=== PATIENT | male | born 1970 | race Caucasian/White ===

== ENCOUNTER 2024-02-19 16:17 | Emergency (ER) | payer OTHER ==
[~2024-02-19] VITALS: Ht 180.3 cm; Wt 72.6 kg
[2024-02-19 16:33] VITALS: BP 129/64; PULSE 92; RESP 14
[2024-02-19] MEDS ORDERED: ALBUHFA IH (21:27)
[2024-02-19] MEDS ORDERED: AZIT500T2 PO (21:27)
[2024-02-19] MEDS ORDERED: BENZ-39 PO (21:27)
== END 2024-02-19 17:48 | disposition left against medical advice (07) ==
LOC: EDH 16:17
DX: F41.9 Anxiety disorder, unspecified (principal); Z53.21 Procedure and treatment not carried out due to patient leaving prior to being seen by health care provider
CPT/HCPCS: 99281

== ENCOUNTER 2024-02-19 19:15 | Emergency (ER) | payer OTHER ==
[~2024-02-19] VITALS: Ht 177.8 cm; Wt 68.9 kg
[2024-02-19 20:45] LABS: SARS-CoV-2, RNA, NAAT NEGATIVE SARS CoV-2 (NEGATIVE)
[2024-02-19 20:48] LABS: INFLUENZA TYPE A Negative For Type A (NEGATIVE); INFLUENZA TYPE B Negative For Type B (NEGATIVE)
[2024-02-19] MEDS: IPRATROPIUM/ALBUTEROL SULFATE 3 ML SOLUTION IH ONE (20:52)
[2024-02-19 20:55] VITALS: PULSE 78; RESP 18
[2024-02-19 20:59] LABS: RAPID GROUP A STREP negative (NEGATIVE)
[2024-02-19] MEDS ORDERED: BENZ-39 PO (21:27)
[2024-02-19] MEDS ORDERED: AZIT500T2 PO (21:27)
[2024-02-19] MEDS ORDERED: ALBUHFA IH (21:27)
[2024-02-19] MEDS: DEXAMETHASONE SOD PHOSPHATE 4 MG/ML 1ML VIAL IM ONE (22:12)
[2024-02-19] MEDS: AZITHROMYCIN 250 MG TABLET PO ONE (22:12)
[2024-02-19 22:16] VITALS: BP 136/88; PULSE 79; RESP 18; O2SAT 99
== END 2024-02-19 22:42 | disposition home or self-care (01) ==
LOC: EDH 19:15
DX: J20.8 Acute bronchitis due to other specified organisms (principal); R05.9 Cough, unspecified; R06.00 Dyspnea, unspecified; F41.9 Anxiety disorder, unspecified; F32.A Depression, unspecified; Z20.822 Contact with and (suspected) exposure to COVID-19
CPT/HCPCS: 99284; 71045; 87635; 87880; 87804 ×2; 96372; 94640; J1100